=== PATIENT | male | born 1955 | race Caucasian/White ===

== ENCOUNTER 2018-03-05 17:23 | Inpatient (IN) ==
[2018-03-05] MEDS ORDERED: DUONEB (A & A) INH ONE (17:37)
[2018-03-05] MEDS ORDERED: ROCEPHIN 1 GM in NS 50 ML IV ONE (17:37)
[2018-03-05] MEDS ORDERED: NS 1,000 ML IV ONE (17:37)
[2018-03-05] MEDS ORDERED: ZITHROMAX PO ONE (17:37)
[2018-03-05] MEDS ORDERED: SOLU-MEDROL IV ONE (17:37)
[2018-03-05 17:57] LABS: BE 6.1 mmoll (-3.0-3.0); BLOOD TYPE ARTERIAL; HCO3-(ACT) 29.4 mmoll (20.0-26.0); METHB 1.5 % (0.0-1.5); O2(CT) 19.4 mL/dL (15.0-23.0); PO2(98.6) 59 mmHg (60-100); SAMPLE BLOOD; THB 15.8 g/dL (11.5-17.4); pH(98.6) 7.41 (7.35-7.45)
[2018-03-05 18:01] LABS: PCO2(98.6) 51 mmHg (35-45)
[2018-03-05 18:02] LABS: MODALITY CANNULA; O2HB 87.5 % (95.0-99.0)
[2018-03-05 18:10] LABS: BASO# 0.04 X1000 (0.0-0.2); BASO% 0.3 % (0.0-0.8); EOS# 0.04 X1000 (0.0-0.7); EOS% 0.3 % (0.0-10.0); HEMATOCRIT 47.9 % (42.0-52.0); HEMOGLOBIN 15.3 g/dL (14.0-18.0); IMM GRAN# 0.07 X1000 (0.0-0.04); IMM GRAN% 0.6 % (0.0-0.5); LYMPH# 1.29 X1000 (1.2-3.4); LYMPH% 10.8 % (20.5-51.1); MCH 31.4 PG (27-31); MCHC 31.9 g/dL (33-37); MCV 98.4 FL (81-99); MONO# 1.47 X1000 (0.11-0.59); MONO% 12.3 % (1.7-9.3); MPV 9.6 FL (7.4-10.4); NEUT# 9.05 X1000 (1.4-6.5); NEUT% 75.7 % (42.2-75.2); PLT 276 X1000 (130-400); RBC 4.87 XMIL (4.7-6.1); WBC 11.96 X1000 (4.8-10.8)
[2018-03-05 18:16] LABS: INR 0.98; PROTIME 13.5 Seconds (11.0-16.0)
--- NOTE | 2018-03-05 18:16 | EKG Report ---
Test Performed on : 03/05/2018 5:32:14 PM Test Reason : sob Blood Pressure : / mmHG Vent. Rate : 098 BPM Atrial Rate : 098 BPM P-R Int : 000 ms QRS Dur : 084 ms QT Int : 364 ms P-R-T Axes : 000 055 073 degrees QTc Int : 464 ms Accelerated Junctional rhythm. Nonspecific ST abnormality Abnormal ECG When compared with ECG of 17-NOV-2016 14:06, Junctional rhythm. has replaced Sinus rhythm. Unconfirmed Result
[2018-03-05 18:25] LABS: AGAP 12; ALBUMIN 3.4 g/dL (3.5-5.0); ALKALINE PHOSPHATASE 83 U/L (32-122); BUN 9 mg/dL (8-22); CALCIUM 9.3 mg/dL (8.8-10.2); CHLORIDE 98 mmol/L (98-107); CK PROFILE 46 U/L (24-204); COSMO 283; CREATININE 0.7 mg/dL (0.7-1.2); ESTIMATED GFR > 60; GLUCOSE 113 mg/dL (70-104); GOT 30 U/L (10-34); GPT 34 U/L (10-44); MAGNESIUM 2.3 mg/dL (1.5-2.7); SODIUM 142 mmol/L (136-145); TCO2 32 mmol/L (25-35); TOTAL PROTEIN 7.3 g/dL (6.3-8.3)
--- NOTE | 2018-03-05 18:38 | PROVIDER DOCUMENTATION ---
This chart was entered by Cece Martini Scribe, acting as scribe for Yonathan Flores MD. HPI-Chest Pain - General Stated Complaint: CHEST PAIN / WEAK Time Seen by Provider: 03/05/18 17:27 Source: patient Allergies/Adverse Reactions: Patient Allergies Allergy/AdvReac Type Severity Reaction Status Date / Time No Known Allergies Allergy Verified 03/05/18 17:56 Home Medications: Home Medication List Medication Instructions Recorded Confirmed Last Taken Type Chavo/Polymyx/Dexameth Oph Oint 1 applicatn OPH 4XDAY 11/17/16 03/05/18 11/17/16 08:00 History [Maxitrol Eye Ointment] Timolol 0.5% Oph Solution 1 drop RIGHT EYE BID 03/05/18 03/05/18 Unknown History [Timoptic 0.5% Oph Solution] - History of Present Illness-CP Nature of Presenting Problem: 62 y/o male presents to ED with sternal chest pain, fever, weakness, and SOB onset 1 week ago. Pt reports hx COPD. 81% O2 sat upon provider arrival to room. Pt states he smokes 1.5 ppd and has not seen a doctor in over 1 year. Pt is alert and oriented. Location: reports: other (sternal) Chest Pain Radiation: reports: no radiation Quality of Pain: reports: sharp Severity in ED: moderate Onset/Duration: 1 week ago Timing: still present Context/Activities at Onset: reports: none Modifying Factors: improves with: nothing Associated Symptoms: reports: fever/chills, shortness of breath, weakness Nitro Today/Relief: no nitro taken today Aspirin Treatment Today: no aspirin today Prior Chest Pain/Cardiac Workup: reports: no prior chest pain Similar Symptoms Previously?: No Recently Seen Here or By Another Healthcare Provider: No Review of Systems - Adult - REVIEW OF SYSTEMS - ADULT Constitutional: reports: fever. denies: chills Eyes: reports: no symptoms reported Ears, Nose, Mouth & Throat: reports: no symptoms reported Cardiovascular: reports: chest pain. denies: palpitations Respiratory: reports: shortness of breath. denies: cough Gastrointestinal: denies: abdominal pain, diarrhea, nausea, vomiting Genitourinary: reports: no symptoms reported Musculoskeletal: denies: back pain, joint pain Integumentary: reports: no symptoms reported Neurological: reports: other (weakness). denies: dizziness/vertigo, seizure Psychiatric: reports: no symptoms reported Endocrine: reports: no symptoms reported Hematologic/Lymphatic: reports: no symptoms reported Allergic/Immunologic: reports: no symptoms reported All Other Systems: Reviewed and Negative Past History - Adult - PAST MEDICAL HISTORY-ADULT Review of Records: reports: Old Records Reviewed, Nursing Assessment Review, Medications Reviewed Major Childhood Illnesses: reports: denies history Cardiovascular: reports: denies history Respiratory: reports: denies history Gastrointestinal: reports: denies history Obstetrical/Gynecological: reports: denies history Genitourinary: reports: denies history Musculoskeletal: reports: denies history Neurological: reports: denies history Endocrine/Immune: reports: denies history Other Conditions: reports: denies history, other cancer - PRIOR SURGERIES/PROCEDURES Surgical/Procedure History: reports: back/neck (neck), other (neck fusion, R eye ) - PRIOR HOSPITALIZATIONS Prior Hospitalizations: reports: none - IMMUNIZATION STATUS Childhood Immunizations: See Nurse Assessment Flu Vaccine: See Nurse Assessment - FAMILY HISTORY Family History: reviewed, not pertinent - SOCIAL HISTORY Smoking: greater than 1 pack/day Provider spent 3-5 mins advising pt. on dangers of tobacco.: Discussed manners to quit use, and f/u contacts for add'l counseling. Substance Use: alcohol Alcohol Use Frequency: every day Living Situation: family Physical Exam-General - PHYSICAL EXAM-ADULT Initial Vital Signs Reviewed: Yes - CONSTITUTIONAL General Appearance: appears well, alert, no apparent distress - EYES Eyes: PERRL/EOMI, pink conjunctivae - HEAD, EARS, NOSE, MOUTH & THROAT HENMT: normocephalic/atraumatic, moist mucous membranes, normal ENT inspection - NECK Neck: non-tender, full range of motion - RESPIRATORY Respiratory: chest non-tender, respiratory distress (moderate), rhonchi, wheezing, other (tight breath sounds; only able to speak 2-3 words at a time) - CARDIOVASCULAR Cardiovascular: normal peripheral pulses, regular rate, rhythm - GASTROINTESTINAL (ABDOMEN) Abdominal Exam: normal bowel sounds, non tender, soft - MUSCULOSKELETAL Back Exam: normal inspection, no CVA tenderness Extremity: normal range of motion, non-tender, normal gait - SKIN Integumentary: normal color, warm/dry - NEUROLOGIC Neurologic: grossly normal - PSYCHIATRIC Psych/Mental Status: normal mood/affect, normal thought content, normal thought process Progress - PLAN OF CARE/RESULTS Progress/Plan/Lab Results: Vital Signs - 8 hr 03/05/18 17:49 03/05/18 18:07 Temperature 99.6 F Pulse Rate 92 H 101 H Respiratory Rate 26 H 26 H Blood Pressure 142/98 O2 Sat by Pulse Oximetry 81 L 92 L Laboratory Results - last 24 hr 03/05/18 03/05/18 03/05/18 17:32 17:40 17:40 WBC 11.96 H RBC 4.87 Hgb 15.3 Hct 47.9 MCV 98.4 MCH 31.4 H MCHC 31.9 L RDW Std Deviation 13.0 Plt Count 276 MPV 9.6 Immature Gran % (Auto) 0.6 H Neut % (Auto) 75.7 H Lymph % (Auto) 10.8 L [place] % (Auto) 12.3 H Eos % (Auto) 0.3 Baso % (Auto) 0.3 Immature Gran # (Auto) 0.07 H Neut # (Auto) 9.05 H Lymph # (Auto) 1.29 [place] # (Auto) 1.47 H Eos # (Auto) 0.04 Baso # (Auto) 0.04 PT INR Specimen Type ARTERIAL Sample Site L BRACHIAL pH 7.41 pCO2 51 H* pO2 59 L HCO3 29.4 H Base Excess 6.1 H Oxyhemoglobin 87.5 L* ABG O2 Sat (Calculated) 19.4 ABG O2 Saturation 93.0 L ABG Carboxyhemoglobin 4.30 H ABG Methemoglobin 1.5 A-a O2 Difference 48.0 Total Hemoglobin 15.8 Lactate 0.80 Liter Flow 1.0 Blood Gas Modality CANNULA FiO2 % 24.0 Sodium 142 Potassium 4.0 Chloride 98 Carbon Dioxide 32 Anion Gap 12 BUN 9 Creatinine 0.7 Estimated GFR/1.73 m2 > 60 BUN/Creatinine Ratio 13 Glucose 113 H Calculated Osmolality 283 Calcium 9.3 Magnesium 2.3 Total Bilirubin 0.30 AST 30 ALT 34 Alkaline Phosphatase 83 Creatine Kinase 46 Troponin T [id number]-Ciophlvntuz Pept Total Protein 7.3 Albumin 3.4 L Globulin 4.0 Albumin/Globulin Ratio 1.0 Plasma Lactate 03/05/18 03/05/18 03/05/18 17:40 17:40 17:40 WBC RBC Hgb Hct MCV MCH MCHC RDW Std Deviation Plt Count MPV Immature Gran % (Auto) Neut % (Auto) Lymph % (Auto) [place] % (Auto) Eos % (Auto) Baso % (Auto) Immature Gran # (Auto) Neut # (Auto) Lymph # (Auto) [place] # (Auto) Eos # (Auto) Baso # (Auto) PT 13.5 INR 0.98 Specimen Type Sample Site pH pCO2 pO2 HCO3 Base Excess Oxyhemoglobin ABG O2 Sat (Calculated) ABG O2 Saturation ABG Carboxyhemoglobin ABG Methemoglobin A-a O2 Difference Total Hemoglobin Lactate Liter Flow Blood Gas Modality FiO2 % Sodium Potassium Chloride Carbon Dioxide Anion Gap BUN Creatinine Estimated GFR/1.73 m2 BUN/Creatinine Ratio Glucose Calculated Osmolality Calcium Magnesium Total Bilirubin AST ALT Alkaline Phosphatase Creatine Kinase Troponin T [id number]-Zoywevjytez Pept 243 H Total Protein Albumin Globulin Albumin/Globulin Ratio Plasma Lactate 1.1 03/05/18 17:40 WBC RBC Hgb Hct MCV MCH MCHC RDW Std Deviation Plt Count MPV Immature Gran % (Auto) Neut % (Auto) Lymph % (Auto) [place] % (Auto) Eos % (Auto) Baso % (Auto) Immature Gran # (Auto) Neut # (Auto) Lymph # (Auto) [place] # (Auto) Eos # (Auto) Baso # (Auto) PT INR Specimen Type Sample Site pH pCO2 pO2 HCO3 Base Excess Oxyhemoglobin ABG O2 Sat (Calculated) ABG O2 Saturation ABG Carboxyhemoglobin ABG Methemoglobin A-a O2 Difference Total Hemoglobin Lactate Liter Flow Blood Gas Modality FiO2 % Sodium Potassium Chloride Carbon Dioxide Anion Gap BUN Creatinine Estimated GFR/1.73 m2 BUN/Creatinine Ratio Glucose Calculated Osmolality Calcium Magnesium Total Bilirubin AST ALT Alkaline Phosphatase Creatine Kinase Troponin T < 0.010 Naa-U-Skppyaxkcfe Pept Total Protein Albumin Globulin Albumin/Globulin Ratio Plasma Lactate Orders Category Date Time Status Nursing- Obtain EKG once Care 03/05/18 17:33 Active Oxygen Therapy- ED Nursing DIRECTED Care 03/05/18 18:00 Active Saline Loc NOW Care 03/05/18 17:39 Active cxr [CHEST-2 VIEWS] [RAD] Stat Exams 03/05/18 17:33 Taken ABG [RESP] Routine Lab 03/05/18 17:32 Completed BLOOD CULTURE [BLDCUL] Stat Lab 03/05/18 17:39 Ordered CBC WITH ELECTRONIC DIFF [HEME] Stat Lab 03/05/18 17:40 Completed CK PROFILE [SP CHEM] Stat Lab 03/05/18 17:40 Completed COMPREHENSIVE METABOLIC PANEL [CHEM] Stat Lab 03/05/18 17:40 Completed LACTATE, PLASMA [CHEM] Stat Lab 03/05/18 17:40 Completed MAGNESIUM [CHEM] Stat Lab 03/05/18 17:40 Completed PRO B-NATRIURETIC PEPTIDE Stat Lab 03/05/18 17:40 Completed PROTIME WITH INR [COAG] Stat Lab 03/05/18 17:40 Completed SPUTUM CULTURE WITH GRAM STAIN [RM] Routine Lab 03/05/18 18:15 Ordered TROPONIN T Stat Lab 03/05/18 17:[address] W/POSS RFLX CULT [URINALYSIS] Stat Lab 03/05/18 17:40 Uncollected 0.9% Sodium Chloride Inj [Ns] 1,000 ml Med 03/05/18 17:37 Active IV 999 mls/hr Albuterol 2.5MG/Ipratrop 0.5MG [Duoneb (A & A)] Med 03/05/18 17:37 Discontinued 9 ml INH NOW ONE Azithromycin [Zithromax] Med 03/05/18 17:37 Discontinued 1,000 mg PO NOW ONE CefTRIAXONE [Rocephin] 1 gm Med 03/05/18 17:37 Discontinued 0.9% Sodium Chloride Inj [Ns] 50 ml IV NOW Methylprednisolone Sod Succ [Solu-Medrol] Med 03/05/18 17:37 Discontinued 125 mg IV NOW ONE Aerosol Treatments Routine Oth 03/05/18 17:37 Active Aerosol Treatments Stat Oth 03/05/18 17:37 Active EKG [EKG] Stat Ther 03/05/18 17:39 Draft Result Diagrams: 03/05/18 17:40 03/05/18 17:40 - REASSESSMENT Reassessment #1 Time Reassessed: 18:35 Status: improving (still requiring supplemental O2) - EKG 1 Time of EKG reading by physician:: 17:32 EKG Read and Signed by:: Yonathan Flores EKG Interpretation (*Must complete 3 of following elements*): Abnormal Rate: 98 Rhythm: Accelerated Junctional [place]: normal QRS: normal CA Interval: normal ST Wave: non-specific ST changes Comments: Artifact present. -Dr. Flores - CONSULTS/PCP/HOSPITALIST Notification #1 *Consult/PCP/Hospitalist*: [place] Time Discussed: 18:37 Consult Disposition: Will see in ED Procedures - ADDITIONAL PROCEDURES Additional Procedure: OTHER (ABG INTERPRETATION: HYPOXEMIA AND HYPERCARBIA WITHOUT ACIDOSIS. pH 7.41, PO2 59, PCO2 51, HCO3 29.4, sats 93% on 1.5L O2 by nc - - - > WILL NEED INCREASED O2 AND NEB TREATMENTS AND LIKELY ADMISSION) Departure - Departure Date of Disposition Decision: 03/05/18 Time of Disposition Decision: 18:37 DIAGNOSIS: Tobacco abuse disorder, COPD with exacerbation, Bronchitis, Hypoxemia, Hypercarbia Disposition: ADMITTED INPATIENT 09 Certified Medical Emergency: Emergent Condition: Fair Referrals and Follow-Ups: None,PCP [Primary Care Provider] - - Critical Care Note This patient required my direct & personal management of CC.: No Attestation - Physician/ FARIDEH Attestation Patient care was provided by Advanced Practice Provider:: No The physician spent face to face time with patient:: Yes Advanced Practice Provider documentation review:: Supervising physician onsite and consulted in the evaluation and care of this patient. The physician did have a face to face encounter with the patient. This chart was documented by the indicated scribe, (Cece Martini Scribe) and accurately reflects the services I performed and decisions made by me, Yonathan Flores MD, as attested by the provider's signature.
--- NOTE | 2018-03-05 18:41 | Diag Imaging Result Doc PS360 ---
EXAM: CHEST-2 VIEWS 03/05/2018 HISTORY: cp TECHNIQUE: PA and lateral chest COMMENT: There is ill-defined opacity and increased interstitial markings particularly in the lingula. There is also a apparent nodular opacity in the right apex which was not present on 11/17/2016. IMPRESSION: Pulmonary edema and/or pneumonia. Granulomatous disease. New nodule right upper lobe. Electronically signed by Tristan Vinson 03/05/2018 6:38 PM
[2018-03-05 19:10] LABS: INFLUENZA A NEGATIVE (NEGATIVE); INFLUENZA B NEGATIVE (NEGATIVE)
[2018-03-05] MEDS ORDERED: DUONEB (A & A) INH PRN (19:51)
[2018-03-05 20:20] LABS: BILIRUBIN URINE NEGATIVE (NEGATIVE); BLOOD URINE NEGATIVE (NEGATIVE); CLARITY CLEAR (CLEAR); COLOR YELLOW; GLUCOSE URINE NEGATIVE (NEGATIVE); KETONE URINE TRACE mg/dL (NEGATIVE); LEUKOCYTES URINE TRACE (NEGATIVE); NITRITE URINE NEGATIVE (NEGATIVE); PROTEIN URINE 1+(30 mg/dL) mg/dL (NEGATIVE); SP GRAVITY URINE 1.015; UROBILINOGEN URINE 8 mg/dL
[2018-03-05 20:25] LABS: URINE EPITHELIAL CELLS <10 /HPF (<10); URINE RBC <10 /HPF (<10); URINE WBC <10 /HPF (<10)
[2018-03-05 20:26] LABS: URINE BACTERIA 1+ /HFP; URINE CAST NONE SEEN /LPF; URINE CRYSTAL NONE SEEN /HPF; URINE SOURCE CLEAN CATCH; URINE YEAST NONE SEEN /HPF
[2018-03-05] MEDS ORDERED: ROBITUSSIN-DM PO ONE (20:30)
[2018-03-05] MEDS: DUONEB (A & A) INH SCH (23:30)
[2018-03-06] MEDS ORDERED: ZOFRAN IV PRN (01:12)
[2018-03-06] MEDS ORDERED: SODIUM CHLORIDE 0.9% INJ SCH (01:12)
[2018-03-06] MEDS ORDERED: DUONEB (A & A) INH PRN (01:12)
[2018-03-06] MEDS ORDERED: NICODERM PATCH TD ONE (01:12)
[2018-03-06] MEDS ORDERED: TYLENOL PO PRN (01:12)
[2018-03-06] MEDS: SOLU-MEDROL IV SCH ×3 (02:25→17:38)
[2018-03-06] MEDS: PROTONIX IV SCH (02:26)
[2018-03-06] MEDS ORDERED: FLU VACCINE IM ONE (03:19)
[2018-03-06] MEDS: DUONEB (A & A) INH SCH ×6 (03:45→23:17)
--- NOTE | 2018-03-06 04:28 | HISTORY AND PHYSICAL ---
CHIEF COMPLAINT: Shortness of breath. HISTORY OF PRESENT ILLNESS: This is a 62-year-old gentleman with no real medical problems, but he has a very longstanding history of smoking. He came in with cough and shortness of breath. He also was complaining of chest pain, fever. He reports history of COPD, he did not tell me but he was 81% when he came to the ER. He has just difficulty breathing. He has been smoking for 62 yeaRS years so I would say he at least has a 50 and maybe even 60 pack-year history of smoking, but no major issues. He has never been hospitalized. He has been here since 2015. No other major complaints in the ER, again hypoxic. X-ray showed COPD changes, but no clear changes associated with pneumonia or pulmonary edema. He is complaining more of symptoms on the right side. The patient admitted for acute COPD exacerbation and acute respiratory failure. PAST MEDICAL HISTORY: COPD. Denies any other major issues. PAST SURGICAL HISTORY: He has had right eye surgery for which he has a new kind of stye on the right eye that is there, but he has not followed up with his doctors at [facility]. He was managed there previously. SOCIAL HISTORY: Again probably a 50 pack-year history of smoking. He denies alcohol. ALLERGIES: No known drug allergies. MEDICATIONS: The only medications he takes are ophthalmological ointment. Neomycin-Polymyxin, dexamethasone, timolol. FAMILY HISTORY: Mother had skin cancer which spread over her face. Father also had cancer of unknown type. REVIEW OF SYSTEMS: No weight loss. He does report some intermittent chest pain mostly on the right side. Otherwise negative times a 10-point review of systems. PHYSICAL EXAMINATION: VITAL SIGNS: Blood pressure is 165/97, heart rate of 104, respiratory rate of 28, temperature was 99.6 degrees, O2 sat is 92% on 3 L, I think he is up to 4 L and he is 93%. LABORATORY DATA: His blood gas showed pCO2 of 51, PaO2 of 59. Chemistries looked okay. Flu was negative. Coagulation studies were okay. White count is 11.6. Chest x-ray showed pneumonia or interstitial infiltrates on the right side. PROBLEM LIST: The patient is a 62-year-old male with chronic obstructive pulmonary disease exacerbation and likely pneumonia. 1. Acute chronic obstructive pulmonary disease exacerbation. We will continue breathing treatments, steroids and follow. He is still in significant distress, hopefully he will not further decompensate. 2. Pneumonia. We will continue empiric antibiotics. He has been placed on Rocephin and azithromycin and I think that it is reasonable to continue those. Get a sputum culture. Follow up on blood cultures. Continue pulmonary toilet. 3. Tobacco abuse. We advised him on tobacco abuse. We will continue to follow closely. 4. We will continue antibiotic ointment and follow closely. cc: Javier Gould MD MTDD
[2018-03-06] MEDS: LOVENOX SUBQ SCH (05:39)
[2018-03-06] MEDS: PULMICORT INH SCH ×2 (08:27→20:39)
[2018-03-06] MEDS ORDERED: TIMOPTIC 0.5% OPH SOLUTION RIGHT EYE SCH (09:00)
[2018-03-06] MEDS: GENTAMICIN 0.3% OPH OINT RIGHT EYE SCH ×3 (09:47→17:00)
[2018-03-06 12:51] LABS: BASO# 0.02 X1000 (0.0-0.2); BASO% 0.1 % (0.0-0.8); HEMOGLOBIN 14.9 g/dL (14.0-18.0); IMM GRAN# 0.13 X1000 (0.0-0.04); IMM GRAN% 0.9 % (0.0-0.5); LYMPH# 0.66 X1000 (1.2-3.4); LYMPH% 4.4 % (20.5-51.1); MCH 31.8 PG (27-31); MCHC 32.4 g/dL (33-37); MCV 98.1 FL (81-99); MONO# 0.39 X1000 (0.11-0.59); MONO% 2.6 % (1.7-9.3); MPV 9.4 FL (7.4-10.4); NEUT# 13.96 X1000 (1.4-6.5); PLT 297 X1000 (130-400); RBC 4.69 XMIL (4.7-6.1); RDW 12.8 % (11.5-14.5); WBC 15.16 X1000 (4.8-10.8)
[2018-03-06 12:56] LABS: BANDS 3 % (0-1); LYMPHS 5 % (21-51); MONO 2 % (1-9); SEGS 90 % (42-75)
[2018-03-06 13:04] LABS: AGAP 10; BUN 14 mg/dL (8-22); CALCIUM 9.2 mg/dL (8.8-10.2); CHLORIDE 97 mmol/L (98-107); COSMO 275; CREATININE 0.7 mg/dL (0.7-1.2); ESTIMATED GFR > 60; GLUCOSE 118 mg/dL (70-104); POTASSIUM 4.3 mmol/L (3.5-5.1); SODIUM 137 mmol/L (136-145); TCO2 30 mmol/L (25-35)
[2018-03-06] MEDS: ROCEPHIN 1 GM in NS 50 ML IV SCH (17:39)
[2018-03-06] MEDS: TIMOPTIC 0.5% OPH SOLUTION LEFT EYE SCH (20:01)
[2018-03-07] MEDS: PROTONIX IV SCH (01:23)
[2018-03-07] MEDS: SOLU-MEDROL IV SCH ×3 (01:23→17:26)
[2018-03-07] MEDS: DUONEB (A & A) INH SCH ×6 (03:24→23:24)
[2018-03-07] MEDS: LOVENOX SUBQ SCH (05:29)
[2018-03-07] MEDS: PULMICORT INH SCH ×2 (07:56→19:52)
[2018-03-07] MEDS: TIMOPTIC 0.5% OPH SOLUTION LEFT EYE SCH ×2 (10:15→20:02)
[2018-03-07] MEDS: GENTAMICIN 0.3% OPH OINT RIGHT EYE SCH ×3 (10:15→17:26)
--- NOTE | 2018-03-07 17:07 | PROGRESS NOTE ---
DATE: 03/07/2018 SUBJECTIVE: Patient has no focal complaints. OBJECTIVE: Blood pressure is 127/80, heart rate 79, respiratory 18, temperature 97.5 degrees, 93% on 2 L.Cardiovascular: Regular rate and rhythm. Pulmonary: Bilateral breath sounds. Clear to auscultation. GI: Was soft, nontender, nondistended. Bowel sounds are positive. Extremity: No clubbing or cyanosis. Lymphatic: No peripheral edema. Neurological: Nonfocal. LABORATORY DATA: White count up to 15, hemoglobin and hematocrit 14 and 46. These were yesterday's labs. PROBLEM LIST: 1. Acute chronic obstructive pulmonary disease exacerbation. Will continue breathing treatments, steroids, antibiotics and follow closely but he seems to be improving. I am going to wean his steroids and see how he does. I anticipate he will need home oxygen. 2. Tobacco abuse. We will continue working on cessation and follow closely. DISPOSITION: Anticipate possible discharge tomorrow. He will need evaluation for home oxygen though. cc: Javier Gould MD
[2018-03-07] MEDS: ROCEPHIN 1 GM in NS 50 ML IV SCH (17:25)
[2018-03-08] MEDS: PROTONIX IV SCH (01:06)
[2018-03-08] MEDS: SOLU-MEDROL IV SCH ×3 (01:06→19:04)
[2018-03-08] MEDS: DUONEB (A & A) INH SCH ×6 (03:21→23:02)
[2018-03-08] MEDS: LOVENOX SUBQ SCH (05:00)
[2018-03-08 06:59] LABS: AGAP 10; BUN 21 mg/dL (8-22); CALCIUM 8.2 mg/dL (8.8-10.2); CHLORIDE 95 mmol/L (98-107); COSMO 274; CREATININE 0.6 mg/dL (0.7-1.2); ESTIMATED GFR > 60; GLUCOSE 153 mg/dL (70-104); POTASSIUM 4.4 mmol/L (3.5-5.1); SODIUM 134 mmol/L (136-145); TCO2 29 mmol/L (25-35)
[2018-03-08 07:04] LABS: BASO# 0.01 X1000 (0.0-0.2); BASO% 0.1 % (0.0-0.8); HEMATOCRIT 43.8 % (42.0-52.0); HEMOGLOBIN 13.9 g/dL (14.0-18.0); IMM GRAN# 0.09 X1000 (0.0-0.04); IMM GRAN% 0.7 % (0.0-0.5); LYMPH% 4.7 % (20.5-51.1); MCH 30.8 PG (27-31); MCHC 31.7 g/dL (33-37); MCV 96.9 FL (81-99); MONO% 3.9 % (1.7-9.3); MPV 9.8 FL (7.4-10.4); NEUT# 11.67 X1000 (1.4-6.5); NEUT% 90.6 % (42.2-75.2); PLT 283 X1000 (130-400); RBC 4.52 XMIL (4.7-6.1); RDW 12.6 % (11.5-14.5); WBC 12.87 X1000 (4.8-10.8)
[2018-03-08] MEDS: PULMICORT INH SCH ×2 (07:59→19:25)
[2018-03-08 08:59] LABS: LYMPHS 5 % (21-51); MONO 5 % (1-9); SEGS 90 % (42-75)
[2018-03-08 09:00] LABS: ANISOCYTOSIS 1+
[2018-03-08] MEDS: GENTAMICIN 0.3% OPH OINT RIGHT EYE SCH ×3 (10:19→17:57)
[2018-03-08] MEDS: TIMOPTIC 0.5% OPH SOLUTION LEFT EYE SCH ×2 (10:20→20:07)
[2018-03-08] MEDS: ROCEPHIN 1 GM in NS 50 ML IV SCH (19:04)
[2018-03-09] MEDS: SOLU-MEDROL IV SCH ×2 (01:18→08:12)
[2018-03-09] MEDS: PROTONIX IV SCH (01:18)
[2018-03-09] MEDS: DUONEB (A & A) INH SCH ×3 (03:16→11:25)
--- NOTE | 2018-03-09 03:57 | PROGRESS NOTE ---
DATE: 03/08/2018 SUBJECTIVE: The patient notes that he is feeling better, although not quite to his baseline. He is still having shortness of breath, still having coughing. PHYSICAL EXAMINATION: Vital Signs: Reviewed. He is afebrile. Blood pressure is stable. Respiratory rate 22. ASSESSMENT: 1. Chronic obstructive pulmonary disease, with exacerbation. 2. Chronic tobacco abuse. PLAN: The patient is going to have a dose of Solu-Medrol if he were to go home. We will decrease the Solu-Medrol in half to 40 IV q.8. If he tolerates this, hopefully he can discharge home tomorrow. cc: Juan J Isidro MD
[2018-03-09] MEDS: LOVENOX SUBQ SCH (05:14)
[2018-03-09] MEDS: GENTAMICIN 0.3% OPH OINT RIGHT EYE SCH (08:12)
[2018-03-09] MEDS: TIMOPTIC 0.5% OPH SOLUTION LEFT EYE SCH (08:12)
[2018-03-09 09:03] VITALS: BP 124/85
--- NOTE | 2018-03-10 06:54 | DISCHARGE SUMMARY ---
ADMISSION DATE: 03/05/2018 DISCHARGE DATE: 03/09/2018 DISCHARGE DIAGNOSES: 1. Acute COPD exacerbation. 2. Pneumonia. 3. Tobacco abuse. 4. Haemophilus influenzae sputum culture. 5. Nodule right upper lobe. DIAGNOSTICS: 1. Chest x-ray revealed pulmonary edema and/or pneumonia with a new nodule in the right upper lobe. 2. Microbiology. Blood cultures x2 revealed no growth after 48 hours. 3. Urine culture revealed no growth. 4. Sputum culture revealed haemophilus influenza. HOSPITAL COURSE: Mr. Wolfe presented to the emergency room complaining of chest pain and fever. His room air O2 saturation was 81% on arrival to the ER. Chest x-ray revealed pneumonia. He was initially treated with Rocephin and Zosyn, and subsequently discharged on Omnicef. Multiple room air sats were 87 to 88, as he is in a chronic stable state of COPD he will require home oxygen as well as nebs, which has been set up by director social. We discussed the importance of follow up with his PCP in 2 weeks for reevaluation and to discuss follow up imaging regarding the RUL nodule. DISCHARGE PHYSICAL EXAMINATION: Vital Signs: Blood pressure is 124/85, heart rate is 61, respirations 20, and temperature 98 degrees oral with O2 saturation of 96% on 2 L nasal cannula. Cardiovascular: Regular rate and rhythm. S1, S2 appreciated. He has no lower extremity edema. Pulmonary: Breath sounds, he had some scattered wheezes. He had no increased work of breathing noted. Chest rise and fall symmetrically with respiration. Gastrointestinal: Abdomen is soft, nontender, and nondistended. Bowel sounds in all 4 quadrants. Neurologic: He is alert and oriented x3. DISCHARGE MEDICATIONS: 1. Timoptic ophthalmic solution 1 drop left eye daily. 2. DuoNeb q.4-6 hours p.r.n. 3. Omnicef 300 mg b.i.d. for 5 days. 4. Medrol Dosepak as directed. FOLLOW-UP: He is to follow up with his primary care physician in the next 1 to 2 weeks or sooner if needed. He is being discharged home in stable condition with family members. TIME SPENT: This is a greater than 30 minute discharge. Dictated by MURIEL Shaver for Juan J Isidro MD This chart was documented by, MURIEL Shaver and accurately reflects the services performed, treatment plan and medical decisions as attested by the providers signature Juan J Isidro MD. cc: MURIEL Shaver MD [facility]
--- NOTE | 2018-03-10 07:14 | DISCHARGE SUMMARY ---
ADMISSION DATE: 03/05/2018 DISCHARGE DATE: 03/09/2018 ADDENDUM: On discharge, patient is awake and alert. He is begging to go home. He states his breathing is back to his baseline. We will discharge him home on antibiotics, steroids and breathing treatments. He will follow up outpatient in 1 week with his primary care to re-evaluate the finding of an adrenal mass. cc: Juan J Isidro MD
--- NOTE | 2018-03-11 11:56 | DISCHARGE SUMMARY ---
ADMISSION DATE: 03/05/2018 DISCHARGE DATE: 03/09/2018 ADDENDUM REPORT I spoke with Ms. Wolfe. I called Dr. Fidel Arias' office to fax the discharge summary, chest x- ray, and sputum culture results. There was a mistake, and Mr. Wolfe is not a patient of Dr. Fidel Arias. I then called the house, and spoke with his , who stated that the patient has a new patient appointment with Dr. Fountain on March 30. I, once again, discussed the importance of Mr. Wolfe taking his antibiotics as well as followup for the right upper lobe nodule to which they voiced understanding. I then called Dr. Fountain's office and have faxed these papers to his office. Dictated by MURIEL Shaver for Juan J Isidro MD This chart was documented by, MURIEL Shaver and accurately reflects the services performed, treatment plan and medical decisions as attested by the providers signature Juan J Isidro MD. cc: MURIEL Shaver MD
== END 2018-03-09 11:27 | disposition home or self-care (01) | DRG 190 ==
LOC: P.ED 17:23 → SUATTDRO 20:10 → P.EDIPHOLD 20:10 → P.MEDSURG 03-06 00:48
PROVIDERS: ATTEND Family Medicine
CPT/HCPCS: 71020; 71046; 80048; 80053; 81001; 82550; 82805; 83605; 83735; 83880; 84484; 85025; 85610; 87040; 87070; 87077; 87088; 87184; 87205; 87275; 87276; 87804; 93005; 94640; 94761; 94799; 96365; 96375; 99285; A9270; C9113; J0696; J2920; J2930; J7030; S0164